=== PATIENT | male | born 1955 | race Caucasian/White ===

== ENCOUNTER 2020-01-30 08:55 | Outpatient (CLI) | payer OTHER | END 2020-01-30 09:42 | disposition home or self-care (01) | LOC: LAB 08:55 | PROVIDERS: ATTEND Specialist | DX: Z20.828 Contact with and (suspected) exposure to other viral communicable diseases (principal) ==

== ENCOUNTER → 2023-06-23 08:15 | Outpatient (CLI) | payer OTHER | END | disposition home or self-care (01) | LOC: NUCLEAR 06-09 09:00 | PROVIDERS: ATTEND Specialist | DX: I73.9 Peripheral vascular disease, unspecified (principal) ==

== ENCOUNTER 2023-07-07 10:26 | Outpatient (CLI) | payer OTHER | END 2023-07-07 10:27 | disposition home or self-care (01) | LOC: NUCLEAR 10:26 | PROVIDERS: ATTEND Specialist | DX: I87.2 Venous insufficiency (chronic) (peripheral) (principal) ==